=== PATIENT | male | born 1995 | race Caucasian/White ===

== ENCOUNTER 2017-06-18 19:07 | Emergency (ER) | payer OTHER ==
[~2017-06-18] VITALS: Ht 172.7 cm; Wt 75.0 kg
[2017-06-18 19:42] VITALS: BP 119/63; PULSE 54; RESP 16; TEMP 98.5; O2SAT 99
--- NOTE | 2017-06-18 20:18 | PD ---
HPI Chief Complaint: Psychiatric Symptoms Time Seen by Provider: 19:59 Travel History International Travel<30 days: No Contact w/Intl Traveler<30days: No Traveled to known affect area: No History of Present Illness HPI 21-year-old male presents to the emergency department under Black act by local police. The patient states that his grandmother and mother both in [place] one day of her May 11 and May 12. He is currently a student here for syncope. He states it is hard being here. He has been struggling with depression and sometimes not wanting to get out of bed. He reports that he is not hurting himself when he is depressed. He denies any current suicidal or homicidal ideation. He has no chronic medical problems and takes no prescribed medications. No alcohol, tobacco, drug use. Moderate severity. PFSH Past Medical History Medical History: Denies Significant Hx Past Surgical History Surgical History: No Previous Surgery Social History Alcohol Use: No Tobacco Use: No Substance Use: No Allergies-Medications (Allergen,Severity, Reaction): Coded Allergies: No Known Allergies (Unverified , 06/18/17) Reported Meds & Prescriptions Reported Meds & Active Scripts Active No Active Prescriptions or Reported Medications Review of Systems Except as stated in HPI: all other systems reviewed are Neg Physical Exam Narrative GENERAL: Well-nourished, well-developed male patient, afebrile. SKIN: Focused skin assessment warm/dry. HEAD: Normocephalic. Atraumatic. EYES: No scleral icterus. No injection or drainage. NECK: Supple, trachea midline. No JVD or lymphadenopathy. CARDIOVASCULAR: Regular rate and rhythm without murmurs, gallops, or rubs. RESPIRATORY: Breath sounds equal bilaterally. No accessory muscle use. Lung sounds are clear to auscultation. GASTROINTESTINAL: Abdomen soft, non-tender, nondistended. MUSCULOSKELETAL: No cyanosis, or edema. PSYCHIATRIC: No delusional thought processes. No hallucinations. Data Data Last Documented VS Vital Signs Date Time Temp Pulse Resp B/P (MAP) Pulse Ox O2 Delivery O2 Flow Rate FiO2 06/18/17 19:42 98.5 54 16 119/63 (81) 99 Orders Orders Complete Blood Count With Diff (06/18/17 20:10) Comprehensive Metabolic Panel (06/18/17 20:10) Psych Screen (06/18/17 20:10) Drug Screen, Random Urine (06/18/17 20:10) Alcohol (Ethanol) (06/18/17 20:10) Labs Laboratory Tests Test 06/18/17 20:18 06/18/17 20:30 White Blood Count 5.5 TH/MM3 Red Blood Count 4.72 MIL/MM3 Hemoglobin 15.0 GM/DL Hematocrit 44.8 % Mean Corpuscular Volume 94.9 FL Mean Corpuscular Hemoglobin 31.8 PG Mean Corpuscular Hemoglobin Concent 33.5 % Red Cell Distribution Width 12.6 % Platelet Count 242 TH/MM3 Mean Platelet Volume 7.9 FL Neutrophils (%) (Auto) 54.7 % Lymphocytes (%) (Auto) 34.2 % Monocytes (%) (Auto) 8.6 % Eosinophils (%) (Auto) 2.1 % Basophils (%) (Auto) 0.4 % Neutrophils # (Auto) 3.0 TH/MM3 Lymphocytes # (Auto) 1.9 TH/MM3 Monocytes # (Auto) 0.5 TH/MM3 Eosinophils # (Auto) 0.1 TH/MM3 Basophils # (Auto) 0.0 TH/MM3 CBC Comment DIFF FINAL Differential Comment Blood Urea Nitrogen 18 MG/DL Creatinine 1.05 MG/DL Random Glucose 127 MG/DL Total Protein 7.8 GM/DL Albumin 3.9 GM/DL Calcium Level 8.8 MG/DL Alkaline Phosphatase 78 U/L Aspartate Amino Transf (AST/SGOT) 12 U/L Alanine Aminotransferase (ALT/SGPT) 26 U/L Total Bilirubin 0.3 MG/DL Sodium Level 135 MEQ/L Potassium Level 4.0 MEQ/L Chloride Level 99 MEQ/L Carbon Dioxide Level 28.5 MEQ/L Anion Gap 8 MEQ/L Estimat Glomerular Filtration Rate 88 ML/MIN Ethyl Alcohol Level LESS THAN 3 MG/DL Urine Opiates Screen NEG Urine Barbiturates Screen NEG Urine Amphetamines Screen NEG Urine Benzodiazepines Screen NEG Urine Cocaine Screen NEG Urine Cannabinoids Screen NEG MDM Medical Decision Making Medical Screen Exam Complete: Yes Emergency Medical Condition: Yes Medical Record Reviewed: Yes Differential Diagnosis Depression versus anxiety versus suicidal ideation Narrative Course 21-year-old male presents to the emergency Department a Black act by local police. CBC, CMP, alcohol, urine drug screen are ordered and pending. CBC is unremarkable. CMP shows no acute abnormality. Alcohol level is less than 3. UDS is negative. Patient is medically cleared for psychiatric screening and disposition. Diagnosis Primary Impression: Depression Qualified Codes: F32.9 - Major depressive disorder, single episode, unspecified Scripts No Active Prescriptions or Reported Meds Condition: Isamar Coleman Jun 18, 2017 20:18
[2017-06-18 21:13] LABS: BASOPHIL % 0.4 % (0.0-2.0); EOSINOPHIL # 0.1 TH/MM3 (0-0.4); EOSINOPHIL % 2.1 % (0.0-4.0); HEMATOCRIT 44.8 % (39.0-51.0); HEMO FLAGS DIFF FINAL; LYMPH % 34.2 % (9.0-44.0); LYMPHOCYTE # 1.9 TH/MM3 (1.0-4.8); MEAN CELL VOLUME 94.9 FL (80.0-100.0); MEAN CORPUSCULAR HEMOGLOBIN 31.8 PG (27.0-34.0); MEAN CORPUSCULAR HGB CONC 33.5 % (32.0-36.0); MONO % 8.6 % (0.0-8.0); NEUT % 54.7 % (16.0-70.0); PLATELET COUNT 242 TH/MM3 (150-450); RED BLOOD COUNT 4.72 MIL/MM3 (4.50-5.90); RED CELL DISTRIBUTION WIDTH 12.6 % (11.6-17.2); WHITE BLOOD COUNT 5.5 TH/MM3 (4.0-11.0)
[2017-06-18 21:18] LABS: ANION GAP 8 MEQ/L (5-15); AST (GOT) 12 U/L (15-37); BICARBONATE 28.5 MEQ/L (21.0-32.0); BLOOD UREA NITROGEN 18 MG/DL (7-18); CHLORIDE 99 MEQ/L (98-107); GLOMERULAR FILTRATION RATE 88 ML/MIN (>89); SODIUM (NA) 135 MEQ/L (136-145)
[2017-06-18 21:19] LABS: ALT (GPT) 26 U/L (12-78)
[2017-06-18 21:21] LABS: ALKALINE PHOSPHATASE 78 U/L (45-117); TOTAL BILIRUBIN ADULT 0.3 MG/DL (0.2-1.0)
[2017-06-18 21:27] LABS: ALCOHOL LESS THAN 3 MG/DL (0-5)
[2017-06-19 02:43] VITALS: BP 118/64; PULSE 50; RESP 16; TEMP 99.1; O2SAT 100
[2017-06-19 06:00] VITALS: BP 110/61; PULSE 69; RESP 16; TEMP 98.6; O2SAT 100
[2017-06-19] MEDS ORDERED: LORA-474 PO (10:31)
--- NOTE | 2017-06-19 10:36 | PD ---
History of Present Illness Chief Complaint: Psychiatric Symptoms Time Seen by Provider: 10:30 Travel History International Travel<30 Days: No Contact w/Intl Traveler<30days: No Known affected area: No Legal Status Legal Status: Black Act Black Act Signed By: Deshaun Chavez History of Present Illness: 21-year-old male whose mother and grandmother approximately a week ago, one day after the other. Patient went to a counselor and was given a depression inventory which demonstrated his acute grief. He was then asked about thoughts of harming himself, which she admitted to. As a result, he was Black acted. There is somewhat of a language barrier as the patient is from [facility] and did not understand that he would be handcuffed and brought here for evaluation. He does have trouble with anxiety, grief and insomnia but denies any suicidal or homicidal ideation, plan or intent. He has no psychotic symptoms and his cognition is intact. He is verbally jimi for safety and he is competent to do so. [facility] Past Medical History Medical History: Denies Significant Hx Past Surgical History Surgical History: No Previous Surgery Psychiatric History Psychiatric History Hx Psychiatric Treatment: PATIENT DENIES History of Inpatient Treatment: No Guns or firearms in home: No Social History Hx Alcohol Use: No Hx Tobacco Use: No Hx Substance Use: No Hx of Substance Use Treatment: No Allergies-Medications (Allergen,Severity, Reaction): Coded Allergies: No Known Allergies (Unverified , 06/18/17) Reported Meds & Prescriptions Reported Meds & Active Scripts Active Ativan (Lorazepam) 1 Mg Tab 1 Mg PO DAILY PRN Review of Systems Except as stated in HPI: all other systems reviewed are Neg Mental Status Examination Appearance: Appropriate Consciousness: Alert Orientation: x4 Motor Activity: Normal gait Speech: Unremarkable Language: Adequate Fund of Knowledge: Adequate Attention and Concentration: Adequate Memory: Unremarkable Mood: Appropriate Affect: Appropriate Thought Process & Associations: Intact Thought Content: Appropriate Hallucination Type: None Delusion Type: None Suicidal Ideation: No Suicidal Plan: No Suicidal Intention: No Homicidal Ideation: No Homicidal Plan: No Homicidal Intention: No Insight: Adequate Judgment: Adequate MDM Medical Decision Making Medical Record Reviewed: Yes Assessment/Plan Patient interviewed at bedside. Medical record reviewed. Case discussed with nurse Charlee. Patient does not meet criteria for Black act or involuntary psychiatric hospitalization. He was given a small prescription for Ativan to assist with anxiety, stress and insomnia. He can follow up on an outpatient basis. Orders Orders Complete Blood Count With Diff (06/18/17 20:10) Comprehensive Metabolic Panel (06/18/17 20:10) Psych Screen (06/18/17 20:10) Drug Screen, Random Urine (06/18/17 20:10) Alcohol (Ethanol) (06/18/17 20:10) Diet Regular Basic (06/19/17 Breakfast) Results Vital Signs Date Time Temp Pulse Resp B/P (MAP) Pulse Ox O2 Delivery O2 Flow Rate FiO2 06/19/17 06:00 98.6 69 16 110/61 (77) 100 Room Air 06/19/17 02:43 99.1 50 16 118/64 (82) 100 Room Air 06/18/17 19:42 98.5 54 16 119/63 (81) 99 Laboratory Tests Test 06/18/17 20:18 06/18/17 20:30 White Blood Count 5.5 Red Blood Count 4.72 Hemoglobin 15.0 Hematocrit 44.8 Mean Corpuscular Volume 94.9 Mean Corpuscular Hemoglobin 31.8 Mean Corpuscular Hemoglobin Concent 33.5 Red Cell Distribution Width 12.6 Platelet Count 242 Mean Platelet Volume 7.9 Neutrophils (%) (Auto) 54.7 Lymphocytes (%) (Auto) 34.2 Monocytes (%) (Auto) 8.6 Eosinophils (%) (Auto) 2.1 Basophils (%) (Auto) 0.4 Neutrophils # (Auto) 3.0 Lymphocytes # (Auto) 1.9 Monocytes # (Auto) 0.5 Eosinophils # (Auto) 0.1 Basophils # (Auto) 0.0 CBC Comment DIFF FINAL Differential Comment Blood Urea Nitrogen 18 Creatinine 1.05 Random Glucose 127 Total Protein 7.8 Albumin 3.9 Calcium Level 8.8 Alkaline Phosphatase 78 Aspartate Amino Transf (AST/SGOT) 12 Alanine Aminotransferase (ALT/SGPT) 26 Total Bilirubin 0.3 Sodium Level 135 Potassium Level 4.0 Chloride Level 99 Carbon Dioxide Level 28.5 Anion Gap 8 Estimat Glomerular Filtration Rate 88 Ethyl Alcohol Level LESS THAN 3 Urine Opiates Screen NEG Urine Barbiturates Screen NEG Urine Amphetamines Screen NEG Urine Benzodiazepines Screen NEG Urine Cocaine Screen NEG Urine Cannabinoids Screen NEG Diagnosis Primary Impression: Adjustment disorder with depressed mood Prescriptions Lorazepam (Ativan) 1 Mg Tab 1 MG PO DAILY Y for ANXIETY AND/OR AGITATION, #15 TAB 0 Refills Prov: Beto Cevallos MD 06/19/17 Condition: Stable Beto Cevallos MD Jun 19, 2017 10:36
--- NOTE | 2017-06-19 11:03 | PD ---
Physical Exam Narrative I was asked by the psych department to discharge patient after patient was evaluated and Black acted lifted by psych. Patient was previously medically cleared by previous provider. Please see their documentation for full H&P. Patient denies any homicidal or suicidal ideations. Denies any medical concerns at this time. Data Data Last Documented VS Vital Signs Date Time Temp Pulse Resp B/P (MAP) Pulse Ox O2 Delivery O2 Flow Rate FiO2 06/19/17 06:00 98.6 69 16 110/61 (77) 100 Room Air Orders Orders Complete Blood Count With Diff (06/18/17 20:10) Comprehensive Metabolic Panel (06/18/17 20:10) Psych Screen (06/18/17 20:10) Drug Screen, Random Urine (06/18/17 20:10) Alcohol (Ethanol) (06/18/17 20:10) Diet Regular Basic (06/19/17 Breakfast) Labs Laboratory Tests Test 06/18/17 20:18 06/18/17 20:30 White Blood Count 5.5 TH/MM3 Red Blood Count 4.72 MIL/MM3 Hemoglobin 15.0 GM/DL Hematocrit 44.8 % Mean Corpuscular Volume 94.9 FL Mean Corpuscular Hemoglobin 31.8 PG Mean Corpuscular Hemoglobin Concent 33.5 % Red Cell Distribution Width 12.6 % Platelet Count 242 TH/MM3 Mean Platelet Volume 7.9 FL Neutrophils (%) (Auto) 54.7 % Lymphocytes (%) (Auto) 34.2 % Monocytes (%) (Auto) 8.6 % Eosinophils (%) (Auto) 2.1 % Basophils (%) (Auto) 0.4 % Neutrophils # (Auto) 3.0 TH/MM3 Lymphocytes # (Auto) 1.9 TH/MM3 Monocytes # (Auto) 0.5 TH/MM3 Eosinophils # (Auto) 0.1 TH/MM3 Basophils # (Auto) 0.0 TH/MM3 CBC Comment DIFF FINAL Differential Comment Blood Urea Nitrogen 18 MG/DL Creatinine 1.05 MG/DL Random Glucose 127 MG/DL Total Protein 7.8 GM/DL Albumin 3.9 GM/DL Calcium Level 8.8 MG/DL Alkaline Phosphatase 78 U/L Aspartate Amino Transf (AST/SGOT) 12 U/L Alanine Aminotransferase (ALT/SGPT) 26 U/L Total Bilirubin 0.3 MG/DL Sodium Level 135 MEQ/L Potassium Level 4.0 MEQ/L Chloride Level 99 MEQ/L Carbon Dioxide Level 28.5 MEQ/L Anion Gap 8 MEQ/L Estimat Glomerular Filtration Rate 88 ML/MIN Ethyl Alcohol Level LESS THAN 3 MG/DL Urine Opiates Screen NEG Urine Barbiturates Screen NEG Urine Amphetamines Screen NEG Urine Benzodiazepines Screen NEG Urine Cocaine Screen NEG Urine Cannabinoids Screen NEG MDM Supervised Visit with BHAVNA: No Narrative Course Patient in no obvious distress upon re-evaluation. Patient ambulated without difficulty out of ED at discharge. Diagnosis Primary Impression: Adjustment disorder with depressed mood Referrals: [facility] Patient Instructions: General Instructions Additional Instruction: Follow-up with your primary care physician and/or Syed Perry next week for reevaluation. Take all medication as prescribed. Return to the emergency department if symptoms get worse. Scripts Lorazepam (Ativan) 1 Mg Tab 1 MG PO DAILY Y for ANXIETY AND/OR AGITATION, #15 TAB 0 Refills Prov: Beto Cevallos MD 06/19/17 Disposition: 01 DISCHARGE HOME Condition: Stable Abel Santoyo Jun 19, 2017 11:03
== END 2017-06-19 13:03 | disposition home or self-care (01) ==
LOC: NEDAMB 19:07 → NEPJ 06-19 13:03
DX: F32.9 Major depressive disorder, single episode, unspecified (principal); F43.21 Adjustment disorder with depressed mood; Z79.899 Other long term (current) drug therapy
CPT/HCPCS: 80053; 80307; 85025; 99283